=== PATIENT | male | born 1955 | race Caucasian/White ===

== ENCOUNTER 2019-03-23 13:22 | Day surgery (SDC) | payer BC, OTHER ==
[~2019-03-23] VITALS: Ht 175.3 cm; Wt 86.2 kg
--- NOTE | ~2019-03-23 | O ---
[facility] [place] [address] OPERATIVE REPORT Name: KERLINE WELLS Room #: 150-3 [facility] M..#: [id number] Admission: 03/23/19 Attend Phys: Héctor Olson MD Discharge: Date of : 55 Report #: [id number] THIS REPORT FOR: //name// CC: Chelsea Olson DATE OF SERVICE: 03/23/2019 PREOPERATIVE DIAGNOSIS: Right knee posterior horn medial meniscus tear. POSTOPERATIVE DIAGNOSES: 1. Right knee posterior horn medial meniscus tear. 2. Inner margin fraying, lateral meniscus. 4. 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 PROCEDURE: 1. Right knee arthroscopy with partial medial and lateral meniscectomy. 2. Chondroplasty, lateral femoral condyle. SURGEON: Héctor Olson MD BODS DEVELOPER: Bety Logan PA-C. ANESTHESIA: Dictation ends here. By: [id number] Héctor Olson MD /nt
[~2019-03-23 13:22] MED LIST: ALBUTEROL INH INH; ALBUTEROL2.5 MG/0.1 INH; CARVEDILOL25 MG PO; CELEBREX PO; COLACE100 MG PO; DUPIXENT300 MG/2 M SUBQ; FLECAINIDE ACE100 MG; FLECAINIDE ACET50 M1 PO; FLONASE 0.05%50 MCG NASAL; FLOVENT HFA 1110 MCG INH; IBUPROFEN 400400 M1 PO; MULTI VITAMIN1 EACH PO; NEURONTIN 300300 M1 PO; OMEPRAZOLE20 M2 PO; PERCOCET 7.5-31 EACH PO; PROAIR HFA8.5 GM INH; SINGULAIR PO; SYMBICORT80 MCG/4.1 INH; TAMBOCOR 100 M100 M1 PO; TRAMADOL 50 MG50 MG PO; XARELTO10 MG PO
[2019-03-23 14:52] VITALS: BP 139/98
[2019-03-23] MEDS ORDERED: NORCO 5-325 TA1 EAC1 PO (15:21)
[2019-03-23 15:51] VITALS: BP 139/98
--- NOTE | 2019-03-24 10:00 | O ---
[facility] [address] OPERATIVE REPORT Name: PRISCILLAKERLINE Wilson Room #: DEP [facility]..#: [id number] Admission: 03/23/19 Attend Phys: Héctor Olson MD Discharge: 03/23/19 Date of : 55 Report #: [id number] THIS REPORT FOR: //name// CC: Chelsea Olson DATE OF SERVICE: 03/23/2019 PREOPERATIVE DIAGNOSIS: Right knee posterior horn medial meniscus tear. POSTOPERATIVE DIAGNOSES: 1. Right knee posterior horn medial meniscus tear. 2. Inner margin fraying of lateral meniscus. 3. 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 PROCEDURES: 1. Right knee arthroscopy with partial medial and lateral meniscectomies. 2. Chondroplasty of the lateral femoral condyle. SURGEON: Héctor Olson MD. LASER PRINT OPERATOR: Bety Logan PA-C ANESTHESIA: LMA. TOURNIQUET TIME: 15 minutes. ESTIMATED BLOOD LOSS: Minimal. COMPLICATIONS: None. SPECIMENS: None. CONDITION UPON LEAVING THE OPERATING ROOM: Stable. INDICATIONS FOR PROCEDURE: The patient is a 63-year-old gentleman who has had medial-sided right knee pain. He had an MRI, which shown to have a horizontal flap type tear of the posterior horn of the medial meniscus as well as chondromalacia. After discussion with him, he elected for right knee arthroscopy with partial medial and lateral meniscectomies and debridement as needed. DESCRIPTION OF PROCEDURE: Risks, benefits, alternatives, complications were discussed in detail with the patient including but not limited to risk of anesthesia, risk of damage to nerves, arteries, blood vessels, risk for infection, bleeding, risk for continued knee pain, need for reoperation. [address] [address] OPERATIVE REPORT Name: KERLINE WELLS Room #: DEP [facility] [place]ana#: [id number] Admission: 03/23/19 Attend Phys: Héctor Olson MD Discharge: 03/23/19 Date of : 55 Report #: [id number] Informed consent was obtained from the patient. Right knee was appropriately marked in the preoperative holding area. IV Ancef was given for preoperative antibiotics. He was brought to the operating room and placed in supine position on operating room table. LMA anesthesia was induced without complication. Tourniquet was placed on the right thigh. Right lower extremity was prepped and draped in normal sterile fashion. Timeout was performed properly identifying the patient and procedure as well as the instrumentation. All in the operating room were in agreement. Right lower extremity was exsanguinated, tourniquet was inflated. Tourniquet time was 15 minutes. Standard anterolateral portal was established with an 11 blade through the skin. Arthroscope was introduced into the patellofemoral compartment. Diagnostic arthroscopy was undertaken. Patellofemoral compartment was visualized and found to have grade 2 chondromalacia of the patella as well as grade 4 chondromalacia of the trochlear groove. Medial gutter was visualized and found to be without pathology. Medial compartment was visualized and medial portal was established under arthroscopic visualization. Probe was introduced into the medial compartment and there was noted to be a horizontal type tear of the posterior horn of the medial meniscus. This was trimmed back to stable rim with arthroscopic biter and smoothed back with a shaver. In addition, there were areas of grade 2 chondromalacia of the medial femoral condyle. Notch was visualized and found to have an intact anterior cruciate ligament. Lateral compartment was visualized and found to have inner margin fraying of the posterior horn and body of the lateral meniscus. This was smoothed back with oscillating shaver. In addition, there was an area of grade 4 chondromalacia of the weightbearing surface of the lateral femoral condyle with unstable cartilaginous edges. This was smoothed back with oscillating shaver. Scope was then placed back in the patellofemoral compartment. All fluid was allowed to drain from the knee. The knee was injected with 10 mL of 0.5% Marcaine. Incision was closed with 3-0 nylon. Soft dressing of Adaptic, 4 x 4, Webril, Efe wrap were applied. The patient tolerated this procedure well and went to recovery room under care of anesthesia postoperatively. <ELECTRONICALLY SIGNED> By: Héctor Olson MD 03/24/19 [id number] Héctor Olson MD /nt
== END 2019-03-23 16:45 | disposition home or self-care (01) ==
LOC: OR 13:22 → TBA 14:26 → OR 16:45
DX: M23.221 Derangement of posterior horn of medial meniscus due to old tear or injury, right knee (principal); M23.251 Derangement of posterior horn of lateral meniscus due to old tear or injury, right knee; M94.261 Chondromalacia, right knee; I48.91 Unspecified atrial fibrillation; J45.909 Unspecified asthma, uncomplicated; G47.30 Sleep apnea, unspecified; K21.9 Gastro-esophageal reflux disease without esophagitis; Z98.890 Other specified postprocedural states; Z79.899 Other long term (current) drug therapy; Z90.49 Acquired absence of other specified parts of digestive tract; Z98.52 Vasectomy status; Z79.01 Long term (current) use of anticoagulants
CPT/HCPCS: 50010; 50101; 50405; 51038; 54170; 56526; 57103; 57180; 62110; 62900; 70005